=== PATIENT | male | born 1965 | race Caucasian/White ===

== ENCOUNTER 2020-09-29 09:13 | Outpatient (REF) | payer MEDICAID, SELFPAY ==
[2020-09-30 13:11] LABS: COVID-19 RT-PCR UVMMC Result Negative (Negative)
== END 2020-09-29 09:14 | disposition home or self-care (01) ==
LOC: NCHCN 09:13
PROVIDERS: PCP Internal Medicine; Visit Provider Internal Medicine
DX: Z20.822 Contact with and (suspected) exposure to COVID-19 (principal)
CPT/HCPCS: U0003

== ENCOUNTER 2020-10-20 15:53 | Outpatient (REF) | payer MEDICAID, SELFPAY ==
[2020-10-21 01:00] LABS: COVID-19 RT-PCR UVMMC Result Positive (Negative)
== END 2020-10-20 15:54 | disposition home or self-care (01) ==
LOC: NCHCN 15:53
PROVIDERS: PCP Internal Medicine; Visit Provider Internal Medicine
DX: Z20.822 Contact with and (suspected) exposure to COVID-19 (principal)
CPT/HCPCS: U0003

== ENCOUNTER 2020-10-24 09:01 | Outpatient (CLI) | payer MEDICAID, SELFPAY ==
[2020-10-24] MEDS: Normal Saline 500 ML 30 ML IV (13:44)
[2020-10-24] MEDS: Normal Saline Flush 10 ML SYR IVP (13:45)
[2020-10-24 13:49] VITALS: BP 166/93; PULSE 95; RESP 12; TEMP 36.3; O2SAT 95
[2020-10-24 13:52] VITALS: BP 148/87; PULSE 76; RESP 18; TEMP 36.9; O2SAT 76
[2020-10-24 14:25] VITALS: BP 161/82; PULSE 78; RESP 12; TEMP 37.3; O2SAT 95
[2020-10-24 14:55] VITALS: BP 168/93; PULSE 77; RESP 12; TEMP 37.5; O2SAT 94
[2020-10-24 15:23] VITALS: BP 174/95; PULSE 81; RESP 12; TEMP 37.4; O2SAT 94
== END 2020-10-24 09:02 | disposition home or self-care (01) ==
LOC: INF 09:03
PROVIDERS: PCP Internal Medicine; Visit Provider Family Medicine
DX: U07.1 COVID-19 (principal)
CPT/HCPCS: 96365

== ENCOUNTER 2021-12-20 12:00 | Outpatient (REF) | payer MEDICAID, SELFPAY ==
[2021-12-20 20:01] LABS: Anion Gap 12.7 mmol/L (3-11); CO2 26.3 mmol/L (21.0-32.0); Calcium 9.7 mg/dL (8.5-10.1); Chloride 96 mmol/L (98-107); Estimated GFR 17.63 (mL/min/1.73m2); Glucose 111 mg/dL (74-106)
[2021-12-20 20:24] LABS: CREATININE 3.6 mg/dL (0.70-1.30)
[2021-12-20 20:27] LABS: BUN 77 mg/dL (7-18); Potassium 5.9 mmol/L (3.5-5.1); Sodium 135 mmol/L (136-145)
== END 2021-12-20 12:01 | disposition home or self-care (01) ==
LOC: NCHCN 12:00
PROVIDERS: PCP Internal Medicine; Visit Provider Physician Assistant
DX: I50.9 Heart failure, unspecified (principal)
CPT/HCPCS: 80048

== ENCOUNTER 2021-12-27 16:34 | Outpatient (REF) | payer MEDICAID, SELFPAY ==
[2021-12-27 21:35] LABS: BUN 64 mg/dL (7-18); CREATININE 1.7 mg/dL (0.70-1.30); Chloride 108 mmol/L (98-107); Glucose 111 mg/dL (74-106); Sodium 140 mmol/L (136-145)
== END 2021-12-27 16:35 | disposition home or self-care (01) ==
LOC: NCHCN 16:34
PROVIDERS: PCP Internal Medicine; Visit Provider Physician Assistant
DX: I10 Essential (primary) hypertension (principal)
CPT/HCPCS: 80048